=== PATIENT | male | born 1940 ===

== ENCOUNTER 2018-11-11 08:31 | Outpatient (CLI) | payer OTHER | END 2018-11-11 08:33 | disposition home or self-care (01) | LOC: RX STUDY 08:31 | DX: M50.90 Cervical disc disorder, unspecified, unspecified cervical region (principal); N18.9 Chronic kidney disease, unspecified; M25.469 Effusion, unspecified knee; M70.60 Trochanteric bursitis, unspecified hip; M51.36 Other intervertebral disc degeneration, lumbar region; M51.26 Other intervertebral disc displacement, lumbar region; G62.89 Other specified polyneuropathies; M81.0 Age-related osteoporosis without current pathological fracture; R47.02 Dysphasia ==